=== PATIENT | female | born 1925 | race Caucasian/White ===

== ENCOUNTER 2017-08-23 12:43 | Observation (INO) ==
[2017-08-23] MEDS ORDERED: LORazepam 2 MG/1 ML VIAL IV STA ×2 (12:56→15:01)
[2017-08-23] MEDS ORDERED: cefTRIAXone 2,000 MG in SODIUM CHLORIDE 0.9% 100 ML IV ONE (12:58)
[2017-08-23] MEDS ORDERED: cefTRIAXone 1,000 MG VIAL ONE (13:27)
[2017-08-23] MEDS ORDERED: LORazepam 2 MG/1 ML VIAL ONE ×2 (13:28→14:57)
[2017-08-23 13:52] LABS: Basophils % 0.6 % (0.0-0.8); Eosinophils # 0.1 10*3/uL (0.0-0.87); Eosinophils % 1.1 % (0.00-10.9); Hematocrit 44.7 VOL% (35.7-47.0); Immature Granulocytes % 0.3 %; Immature Granulocytes Absolute 0.02 #; Lymphocytes # 1.6 10*3/uL (1.4-4.0); Lymphocytes % 24.2 % (21.3-54.2); Mean Corpuscular HGB Conc 33.6 GM/DL (32-36); Mean Corpuscular Hemoglobin 31 PG (27-34); Mean Corpuscular Volume 91.8 FL (87-102); Monocytes # 0.4 10*3/uL (0.11-0.8); Monocytes % 5.9 % (1.7-12.7); Neutrophils # 4.5 10*3/uL (1.4-7.4); Neutrophils % 67.9 % (38.7-73.9); Platelet Count 270 T/CUMM (130-400); Red Blood Count 4.87 MC/CUMM (3.8-5.5); Red Cell Distribution Width 13.2 % (9.3-17.3); White Blood Count 6.7 T/CUMM (4-12)
[2017-08-23 13:56] LABS: Apearance,Urine CLEAR (Clear); Bacteria,Urine Occasional /HPF (Few); Bilirubin,Urine Negative (Negative); Blood, Urine Negative (Negative); Glucose,Urine (UA) Negative (Negative); Ketones,Urine Negative (Negative); Mucus,Urine Occasional /LPF (Occasional); Nitrite,Urine Negative (Negative); Protein,Urine Negative; RBC,Urine 1 /HPF (0-4); Urine Color Yellow (Yellow); Urine Specific Gravity 1.003 (1.001-1.035); Urine Urobilinogen < 2.0 EU/DL (0.2-1.0); WBC,Urine 2 /HPF (0-6)
[2017-08-23 14:00] LABS: PT Patient Result 10.6 SECS; Partial Thromboplastin Time 26.2 SECS (0-40)
[2017-08-23 14:07] LABS: Alanine Aminotransferase 17 U/L (13-56); Albumin 3.9 G/DL (3.4-5.0); Alkaline Phosphatase 117 U/L (45-117); Aspartate Amino Transferase 13 U/L (0-37); Bilirubin,Total < 0.39 MG/DL (0.2-1.0); Blood Urea Nitrogen 21 MG/DL (7-18); Calcium 9.8 MG/DL (8.5-10.1); Glucose 112 MG/DL (74-106); Osmolality,Calculated 284.3 MOS/KG (273-304); Potassium 3.8 MMOL/L (3.5-5.1); Sodium 141 MMOL/L (136-145); Total Protein 7.2 G/DL (6.4-8.3); Troponin I Only < 0.015 NG/ML (0.00-0.045)
[2017-08-23 14:10] LABS: Barbiturates Screen,Urine Negative (Negative); Benzodiazepines Screen,Urine Negative (Negative); Cannabinoid Screen,Urine Negative (Negative); Opiate Screen,Urine Negative (Negative); Phencyclidine Screen,Urine Negative (Negative)
[2017-08-23] MEDS ORDERED: ONDANSETRON 4 MG/2 ML VIAL IV PRN (14:43)
[2017-08-23] MEDS ORDERED: LORazepam 2 MG/1 ML VIAL IM STA (14:55)
[2017-08-23 15:03] LABS: Ammonia 19 UMOL/L (11-32)
[2017-08-23] MEDS ORDERED: LORazepam 2 MG/1 ML VIAL IV PRN (17:29)
[2017-08-23] MEDS: ENOXAPARIN 40 MG/0.4 ML SYRINGE SUBCUT SCH (18:01)
[2017-08-23] MEDS: SODIUM CHLORIDE 0.45% 1,000 ML IV SCH (18:01)
[2017-08-23] MEDS: ACETAMINOPHEN 325 MG TABLET PO PRN (20:44)
[2017-08-23] MEDS: DOCUSATE SODIUM 100 MG CAPSULE PO SCH (20:45)
[2017-08-24] MEDS: ACETAMINOPHEN 325 MG TABLET PO PRN (05:50)
[2017-08-24 06:25] LABS: Basophils # 0.1 10*3/uL (0.0-0.2); Basophils % 1.4 % (0.0-0.8); Eosinophils # 0.2 10*3/uL (0.0-0.87); Eosinophils % 3.8 % (0.00-10.9); Hematocrit 37.2 VOL% (35.7-47.0); Hemoglobin 12.6 GM/DL (12.0-16.0); Immature Granulocytes % 0.2 %; Immature Granulocytes Absolute 0.01 #; Lymphocytes # 2.1 10*3/uL (1.4-4.0); Mean Corpuscular HGB Conc 33.9 GM/DL (32-36); Mean Corpuscular Hemoglobin 32 PG (27-34); Mean Corpuscular Volume 93.2 FL (87-102); Mean Platelet Volume 9.4 FL (9.6-12.0); Monocytes # 0.4 10*3/uL (0.11-0.8); Monocytes % 8.4 % (1.7-12.7); Neutrophils # 2.2 10*3/uL (1.4-7.4); Neutrophils % 43.2 % (38.7-73.9); Platelet Count 210 T/CUMM (130-400); Red Blood Count 3.99 MC/CUMM (3.8-5.5); Red Cell Distribution Width 13.3 % (9.3-17.3)
[2017-08-24 07:01] LABS: Calcium 8.5 MG/DL (8.5-10.1); Osmolality,Calculated 280.4 MOS/KG (273-304)
[2017-08-24] MEDS ORDERED: LOSARTAN 50 MG TABLET PO SCH (09:00)
[2017-08-24] MEDS ORDERED: PANTOPRAZOLE 40 MG TABLET PO SCH (09:00)
[2017-08-24] MEDS: DOCUSATE SODIUM 100 MG CAPSULE PO SCH (09:04)
[2017-08-24] MEDS ORDERED: busPIRone 15 MG TABLET PO SCH (09:30)
[2017-08-24] MEDS ORDERED: ASPIRIN EC 81 MG TABLET PO SCH (09:30)
[2017-08-24] MEDS: SODIUM CHLORIDE 0.45% 1,000 ML IV SCH (10:14)
[2017-08-24 11:39] VITALS: BP 128/73
[2017-08-24] MEDS: ENOXAPARIN 40 MG/0.4 ML SYRINGE SUBCUT SCH (14:27)
== END 2017-08-24 17:34 | disposition home health service (06) ==
LOC: N.ED 12:43 → N.EDINP 12:43 → N.5E 17:17
PROVIDERS: ADMIT Family Medicine; ATTEND Family Medicine